=== PATIENT | male | born 1945 | race Caucasian/White ===

== ENCOUNTER 2018-05-25 08:15 | Outpatient (RCR) | payer MEDICARE, BC | END 2018-05-31 | disposition home or self-care (01) | LOC: WSST | DX: R49.0 Dysphonia (principal) | CPT/HCPCS: G9171-GN; G9172-GN ==

== ENCOUNTER 2018-08-24 12:45 | Outpatient (RCR) | payer MEDICARE, BC | END 2018-08-30 | disposition home or self-care (01) | LOC: WSST | DX: R49.0 Dysphonia (principal) | CPT/HCPCS: G9171-GN; G9172-GN ==

== ENCOUNTER → 2021-06-18 | Outpatient (CLI) | payer MEDICARE, BC | LOC: COL.VAS 13:37 | DX: M48.9 Spondylopathy, unspecified (principal); I25.10 Atherosclerotic heart disease of native coronary artery without angina pectoris ==